=== PATIENT | male | born 1955 | race Caucasian/White ===

== ENCOUNTER 2016-10-07 16:57 | Emergency (ER) | payer OTHER ==
[2016-10-07 17:15] VITALS: BP 129/67; PULSE 67; RESP 16; TEMP 98.4; O2SAT 97
--- NOTE | 2016-10-07 17:48 | UCPHY ---
H & P Time Seen by Provider: 10/07/16 17:42 Patient Type: New HPI/ROS: CHIEF COMPLAINT: Swelling and redness at tip of left middle finger. HISTORY OF PRESENT ILLNESS: The patient is a 61-year-old male who presents with an area of swelling and erythema on his left middle finger at the fingernail. The area is painful to the touch and has worsened significantly over the past day. He denies fever, red streaking, lethargy, or other complaints. He denies traumas or obvious foreign bodies. REVIEW OF SYSTEMS: Constitutional - no fevers or chills Musculoskeletal - no joint or muscle pain. Integument - see above Neurological - no numbness, tingling, or paresthesias. Past Medical/Surgical History: Hyperlipidemia. Social History: Nonsmoker. Smoking Status: Never smoked Physical Exam: General Appearance: Alert, no distress. Afebrile. Normal phonation. No respiratory distress. Neurological: No motor weakness. Sensation intact. Skin: Warm and dry, area of the nail fold at the left middle finger is markedly swollen and erythematous with a little pus underneath the nail that extends for approximately 1.5 x 0.5 cm. There is no associated lymphangitis. There is no associated joint swelling with respect to any of the joints in the hand wrist or forearm. Musculoskeletal: No joint swelling. Extremities: No edema. Psychiatric: Normal affect. Rather calm. Constitutional: Initial Vital Signs Temperature (C) 36.9 C 10/07/16 17:12 Heart Rate 67 10/07/16 17:12 Respiratory Rate 16 10/07/16 17:12 Blood Pressure 129/67 H 10/07/16 17:12 O2 Sat (%) 97 10/07/16 17:12 O2 Delivery Mode Room Air Allergies/Adverse Reactions: No Known Allergies Allergy (Verified 10/07/16 17:13) Home Medications: Medication Instructions Recorded Atorvastatin Calcium 10/07/16 Cephalexin [Keflex (*)] 500 mg PO TID #21 cap 10/07/16 Hydrocodone/APAP 5/325 [Eckley 1 - 2 tab PO Q4H PRN #10 tab 10/07/16 5/325 (*)] Medical Decision Making Procedures: Digital block performed utilizing sterile technique with 1% lidocaine without epinephrine. Patient tolerated the procedure well. Area of the nail fold at the site of the paronychia was incised with a 11. Blade and did moderate amount of free pus that was drained and irrigated. No need for culture at this time. He tolerated the procedure well. Estimated blood loss negligible. Differential Diagnosis: The differential diagnosis includes but is not limited to: Cellulitis, abscess, paronychia, felon. - Data Points Medications Given: Discontinued Medications Hydrocodone Bitart/Acetaminophen (Eckley 5/325mg Prepack#6) 1 btl TAKEHOME EDNOW ONE Stop: 10/07/16 18:09 Last Admin: 10/07/16 18:05 Dose: 1 btl Cephalexin HCl (Keflex) 1,000 mg PO EDNOW ONE PRN Reason: Protocol Stop: 10/07/16 18:11 Last Admin: 10/07/16 18:10 Dose: 1,000 mg Departure - Departure Disposition: Home, Routine, Self-Care Clinical Impression: Paronychia of finger of left hand Condition: Good Instructions: Cellulitis (ED) Additional Instructions: Take the antibiotic as prescribed. Try Ibuprofen or Tylenol as instructed for pain. Soak your finger in a basin of warm water 3 times per day for 10 minutes at a time for the next 3 days. Return for any serious worsening of condition. Referrals: Unknown,Unknown [Primary Care Provider] - As per Instructions Prescriptions: Cephalexin [Keflex (*)] 500 mg PO TID #21 cap Hydrocodone/APAP 5/325 [Eckley 5/325 (*)] 1 - 2 tab PO Q4H PRN #10 tab PRN Reason: Pain, Moderate - PQRS PQRS Measurement: NA Report Scribed for: Shay Guadarrama Report Scribed by: Antonio Dejesus Date of Report: 10/07/16 Time of Report: 17:46 Physician Review and Approval Statement: 10/07/16 17:46 Portions of this note were transcribed by a pediatrician/medical doctor. I personally performed a history, physical exam, medical decision making, and confirmed accuracy of information the transcribed note.
[2016-10-07] MEDS ORDERED: HYDROCOD/APAP 5/325 PREPACK#6 BTL TAKEHOME ONE (18:08)
[2016-10-07] MEDS ORDERED: CEPHALEXIN 500 MG CAP PO ONE ×2 (18:10→18:25)
== END 2016-10-07 18:22 | disposition home or self-care (01) ==
LOC: CED 16:57
PROC: 0H9GXZZ Drainage of Left Hand Skin, External Approach (ICD-10-PCS; principal; 2016-10-07)
DX: L03.012 Cellulitis of left finger (principal)
CPT/HCPCS: G0463-PO